=== PATIENT | male | born 1980 | race Caucasian/White ===

== ENCOUNTER 2016-06-06 12:15 | Emergency (ER) | payer OTHER ==
--- NOTE | 2016-06-06 13:03 | UC ---
Dizzy HPI HPI Summary: The patient comes in today for: 1. Lightheadedness, rash, "bumps in my hair, and bumps down my legs, and left arm," and bilateral abdominal pain: Onset: Skin problem present for 1 week. Lightheadedness since yesterday and abdominal pain since yesterday. Palliative/provocative: Nothing makes his above three symptoms better or worse. Quality: Lightheadedness (nausea, and a "blah" feeling.") "It is like I can't focus. Region: Generalized body and [employer]INT. Severity: 09/01 Time: Constant. Associated symptoms: Vomiting: x 3 yesterday. BM: Yesterday. Urination: Normal--"cloudy yellow sometimes--sometimes dark." Temperature: None taken at home. He states that the rash is present on his abdomen, and left forearm and penis. * - History Of Current Complaint Chief Complaint: UCGeneralIllness Stated Complaint: LIGHT HEADED,SKIN COMPLAINT Time Seen by Provider: 06/06/16 12:33 Hx Obtained From: Patient - Allergies/Home Medications Allergies/Adverse Reactions: Allergies Allergy/AdvReac Type Severity Reaction Status Date / Time Ibuprofen Allergy Severe Congestion Verified 06/06/16 12:40 Penicillins Allergy Severe Anaphylatic Verified 06/06/16 12:40 Shock Home Medications: Home Medications NK [No Home Medications Reported] 06/06/16 [History Confirmed 06/06/16] PMH/Surg Hx/FS Hx/Imm Hx Previously Healthy: Yes Endocrine History Of: Denies: Diabetes, Thyroid Disease, Hyperthyroidism, Hypothyroidism, Dyslipidemia Cardiovascular History Of: Denies: Cardiac Disorders, Hypertension, Pacemaker/ICD, Myocardial Infarction , Congestive Heart Failure, Atrial Fibrillation, Deep Vein Thrombosis, Bleeding Disorders Respiratory History Of: Denies: COPD, Asthma, Bronchitis, Pneumonia, Pulmonary Embolism GI/ History Of: Denies: Gastroesophageal Reflux, Ulcer, Gastrointestinal Bleed, Gall Bladder Disease, Kidney Stones, Diverticulitis, Renal Disease, Urosepsis Neurological History Of: Denies: TIA, CVA, Dementia, Seizures, Migraine Psychological History Of: Denies: Anxiety, Depression, Bipolar Disorder, Schizophrenia, Post Traumatic Stress Disorder Cancer History Of: Denies: Lung Cancer, Colorectal Cancer, Breast Cancer, Prostate Cancer, Cervical Cancer Other History Of: Negative For: HIV, Hepatitis B, Hepatitis C, Anticoagulant Therapy - Surgical History Surgical History: Yes Surgery Procedure, Year, and Place[facility] - Family History Known Family History: Negative: Cardiac Disease, Hypertension - Social History Occupation: Employed Full-time Alcohol Use: None Substance Use Type: None Smoking Status (MU): Heavy Every Day Tobacco Smoker Type: Cigarettes Amount Used/How Often: 1 PPD Length of Time of Smoking/Using Tobacco: Patient stated he doesn't remember when he started smoking. Have You Smoked in the Last Year: No Review of Systems Constitutional: Negative Skin: Rash Eyes: Negative ENT: Negative Respiratory: Negative Cardiovascular: Negative Gastrointestinal: Abdominal Pain, Vomiting Genitourinary: Negative All Other Systems Reviewed And Are Negative: Yes Physical Exam Triage Information Reviewed: Yes Appearance: Well-Appearing, No Pain Distress, Well-Nourished Vital Signs: Initial Vital Signs Temp 100 F 06/06/16 12:36 Pulse 99 06/06/16 12:36 Resp 18 06/06/16 12:36 BP 145/72 06/06/16 12:36 Pulse Ox 98 06/06/16 12:36 Vital Signs Reviewed: Yes Eyes: Positive: Conjunctiva Clear. Negative: Discharge ENT: Positive: Hearing grossly normal, Other: - Ears: Both canals blocked by cerumen. However, there is no canal erythema or edema.. Negative: Pharyngeal erythema, Nasal congestion, Nasal drainage, Tonsillar swelling, Tonsillar exudate Dental: Positive: Gross Decay/Caries @, Other: - Teeth are in poor repair. Mucous membraines pink and moist.. Negative: Dental Fracture @ Neck: Positive: Supple, Nontender, No Lymphadenopathy. Negative: Nuchal Rigidity Respiratory: Positive: Chest non-tender, Lungs clear, No respiratory distress, No accessory muscle use. Negative: Crackles, Wheezing Cardiovascular: Positive: RRR, No Murmur Abdomen Description: Positive: No Organomegaly, Soft. Negative: Nontender - He has mild tenderness to palpation right and left of the abdomen. There is no rebound, bruits or percussion tenderness., Distended, Guarding Musculoskeletal: Positive: Strength Intact, ROM Intact, No Edema Neurological: Positive: Alert, Muscle Tone Normal Psychological: Positive: Age Appropriate Behavior, Consolable Skin: Positive: rashes - He has papulo-pustular acne on his back. He had erythematous papules about 1 mm of the abdomen--numbering about 10 in number. He has a similar lesion of the left forearm but it was 2 mm in diameter. The penis has a few [place] spots which are what he is concerned about. Diagnostics - Laboratory Diagnostic Studies Completed/Ordered: Urine screen: Specific gravity: 1.015. WBC: (-). Nitrite: (-). Blood: (-). Protein: (-). Glucose: (-) Dizzy Course/Dx - Course Course Of Treatment: The patient was told of his urine being benign. The patient was told that I was not able to make an exact diagnosis for the cause of their abdominal pain. Further, the patient was told that many things can cause this type of pain--some benign and some life-threatening. Also, the patient was told that some of these life-threatening conditions may present with minimal symptoms or in. atypical ways. Based on all of this, the patient was told that my recommendation is for them to go to the ER. where there can be a more in-depth evaluation of their symptoms. However, he does not want to do that at this time and wants medication for abdominal cramps and monitor this. If he gets worse, he states that he will go to the ER. He was told that his blood pressure is elevated and to see his primary care provider. If he does not have one, he can find one from the list included in his discharge packet. - Differential Dx/Diagnosis Provider Diagnoses: Abdominal pain. high blood pressure. Discharge - Discharge Plan Condition: Stable Disposition: HOME Patient Education Materials: Acute Abdominal Pain (ED), Gastroenteritis (ED), Viral Syndrome (ED) Forms: *Work Release Referrals: Non Staff,Doctor [Primary Care Provider] - As Soon As Possible (Please be sure to follow up with your primary care provider as soon as you can for you elevated blood pressure. )
[2016-06-06 14:14] VITALS: BP 142/73
== END 2016-06-06 14:14 | disposition home or self-care (01) ==
LOC: UCCORT 12:15
DX: R10.9 Unspecified abdominal pain (principal); R11.10 Vomiting, unspecified; R03.0 Elevated blood-pressure reading, without diagnosis of hypertension; H61.23 Impacted cerumen, bilateral; K02.9 Dental caries, unspecified; L70.0 Acne vulgaris; F17.210 Nicotine dependence, cigarettes, uncomplicated; Z88.6 Allergy status to analgesic agent; Z88.0 Allergy status to penicillin; R23.8 Other skin changes
CPT/HCPCS: 81003; 99212; G0463

== ENCOUNTER 2017-11-23 19:30 | Emergency (ER) | payer SELFPAY ==
[2017-11-23 19:58] VITALS: BP 119/70
--- NOTE | 2017-11-23 20:16 | UC ---
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---has back pain from scoliosis--- does not have sick time and cannot take a day off from work without a doctors note-- - History of Current Complaint Chief Complaint: UCBackPain Stated Complaint: BACK/LEG PAIN Time Seen by Provider: 11/23/17 20:11 Hx Obtained From: Patient Onset/Duration: Worse Since - chronic issue worse past 1-2 days after working 6 days straight Timing: Constant Pain Intensity: 8 Pain Scale Used: 0-10 Numeric Back Pain: Is Discrete @ Character: Aching, Spasmodic, Stiffness Aggravating Factor(s): Movement, Lifting, Bending Alleviating Factor(s): Nothing Associated Signs And Symptoms: Positive: Negative - Allergies/Home Medications Allergies/Adverse Reactions: Allergies Allergy/AdvReac Type Severity Reaction Status Date / Time ibuprofen Allergy Congestion Verified 11/23/17 20:02 Penicillins Allergy Anaphylatic Verified 11/23/17 20:02 Shock Home Medications: Home Medications Acetaminophen [Mapap] 500 mg PO Q12HR 11/23/17 [History Confirmed 11/23/17] PMH/Surg Hx/FS Hx/Imm Hx Previously Healthy: No - scoliosis Other History Of: Negative For: HIV, Hepatitis B, Hepatitis C, Anticoagulant Therapy - Surgical History Surgical History: Yes Surgery Procedure, Year, and Place: Nasal Polyp Removal 2007[facility] - Family History Known Family History: Positive: Unknown Negative: Cardiac Disease, Hypertension - Social History Occupation: Employed Full-time Lives: With Family Alcohol Use: None Substance Use Type: None Smoking Status (MU): Heavy Every Day Tobacco Smoker Type: Cigarettes Amount Used/How Often: 1 PPD Length of Time of Smoking/Using Tobacco: Patient stated he doesn't remember when he started smoking. Have You Smoked in the Last Year: No Review of Systems Constitutional: Negative Skin: Negative Eyes: Negative ENT: Negative Respiratory: Negative Cardiovascular: Negative Gastrointestinal: Negative Genitourinary: Negative Motor: Negative Neurovascular: Negative Musculoskeletal: Arthralgia - low-mid back pain Neurological: Negative Psychological: Negative Is Patient Immunocompromised?: No All Other Systems Reviewed And Are Negative: Yes Physical Exam Triage Information Reviewed: Yes Appearance: Well-Appearing, No Pain Distress, Well-Nourished Vital Signs: Initial Vital Signs Temp 98.1 F 11/23/17 19:51 Pulse 97 11/23/17 19:51 Resp 15 11/23/17 19:51 BP 119/70 11/23/17 19:51 Pulse Ox 98 11/23/17 19:51 Vital Signs Reviewed: Yes Eye Exam: Normal Eyes: Positive: Conjunctiva Clear, Other: - perrla, eomi ENT Exam: Normal ENT: Positive: Normal ENT inspection, Hearing grossly normal. Negative: Trismus , Muffled voice, Hoarse voice Neck exam: Normal Neck: Positive: Supple, Nontender Respiratory Exam: Normal Respiratory: Positive: Chest non-tender, Lungs clear, Normal breath sounds, No respiratory distress, No accessory muscle use Cardiovascular Exam: Normal Cardiovascular: Positive: RRR, No Murmur, Pulses Normal, Brisk Capillary Refill Musculoskeletal Exam: Other Musculoskeletal: Positive: Strength Intact, ROM Limited @ - back Neurological Exam: Normal Neurological: Positive: Alert, Muscle Tone Normal, Fatigued Psychological Exam: Normal Psychological: Positive: Normal Response To Family Skin Exam: Normal Back Pain Course/Dx - Course Course Of Treatment: ice rest pain med and muscle relaxor, back exercises follow with pcp prn - Differential Dx/Diagnosis Provider Diagnoses: acute on chronic low back pain Discharge - Sign-Out/Discharge Documenting (check all that apply): Patient Departure All imaging exams completed and their final reports reviewed: No Studies - Discharge Plan Condition: Stable Disposition: HOME Prescriptions: Cyclobenzaprine TAB* [Flexeril 10 MG TAB*] 10 mg PO TID PRN #6 tab PRN Reason: pain Hydrocodone/Acetaminophen [Hydrocodone-Acetamin 5-325 mg] 1 each PO QID PRN #4 tablet MDD 4 PRN Reason: Pain Patient Education Materials: Acute Low Back Pain (ED), Lower Back Exercises (ED ) Forms: *Work Release Referrals: No Primary Care Phys,NOPCP [Primary Care Provider] - Additional Instructions: Follow with your doctor in [place] or return as needed - Billing Disposition and Condition Condition: STABLE Disposition: Home - Attestation Statements Provider Attestation: Per institutional requirements, I have reviewed the chart, however, I was not consulted specifically or made aware of this patient by the midlevel provider. I did not personally evaluate, interact with , or disposition this patient.
[2017-11-23] MEDS ORDERED: HYDROcodone/ACETAMIN 5-325 MG* 1 TAB PO ONE (20:26)
[2017-11-23] MEDS ORDERED: Cyclobenzaprine TAB* 10 MG PO ONE (20:27)
== END 2017-11-23 20:47 | disposition home or self-care (01) ==
LOC: UCCORT 19:30
DX: M54.5 Low back pain (principal); G89.29 Other chronic pain; F17.210 Nicotine dependence, cigarettes, uncomplicated; Z88.6 Allergy status to analgesic agent; Z88.0 Allergy status to penicillin
CPT/HCPCS: 99213; A9270-GY; G0463

== ENCOUNTER 2019-07-08 15:01 | Emergency (ER) | payer BC, OTHER ==
--- NOTE | 2019-07-08 15:36 | UC ---
[facility] HPI HPI Summary: ONSET OF COUGH TODAY. 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 HAD CHEST TIGHTNESS ASSOCIATED WITH COUGH. NO FEVER, N/V. NO KNOWN COVID-19 EXPOSURE. IS A SMOKER. SENT BY WORK FOR COVID-19 TESTING. [facility] PMH Previously Healthy: Yes Endocrine/Hematology History: Denies: Hx Anticoagulant Therapy, Hx Diabetes, Hx Thyroid Disease Cardiovascular History: Denies: Hx Congestive Heart Failure, Hx Deep Vein Thrombosis, Hx Hypertension , Hx Myocardial Infarction, Hx Pacemaker/ICD Respiratory History: Denies: Hx Asthma, Hx Chronic Obstructive Pulmonary Disease (COPD), Hx Lung Cancer, Hx Pneumonia, Hx Pulmonary Embolism GI History: Denies: Hx Gall Bladder Disease, Hx Gastrointestinal Bleed, Hx Ulcer, Hx Urosepsis History: Denies: Hx Kidney Stones, Hx Renal Disease Neurological History: Denies: Hx Dementia, Hx Migraine, Hx Seizures, Hx Transient Ischemic Attacks (TIA) Psychiatric History: Denies: Hx Anxiety, Hx Depression, Hx Schizophrenia, Hx Bipolar Disorder - Surgical History Surgery Procedure, Year, and Place: Nasal Polyp Removal 2007[facility] Infectious Disease History: No - Family History Known Family History: Negative: Cardiac Disease, Hypertension - Social History Alcohol Use: Rare Substance Use Type: Reports: None Hx Tobacco Use: Yes Smoking Status (MU): Heavy Every Day Tobacco Smoker Type: Cigarettes Amount Used/How Often: 1 PPD+ Length of Time of Smoking/Using Tobacco: Patient stated he doesn't remember when he started smoking. Have You Smoked in the Last Year: No [facility] All Other Systems Reviewed And Are Negative: Yes Constitutional: Negative ENT: Negative Cardiovascular: Negative Positive: Shortness Of Breath, Cough Gastrointestinal: Negative [facility] PE Appearance: Positive: Well-Appearing, Alert and Oriented, No Pain Distress, Well -Nourished Skin: Positive: Skin Color Reflects Adequate Perfusion Eyes: Positive: Conjunctiva Clear ENT: Positive: Hearing grossly normal Neck: Positive: Supple Respiratory/Lung Sounds: Positive: Normal Respiratory Effort. Negative: Cough - NONE DURING ENCOUNTER Cardiovascular: Positive: Skin Color Reflects Adequate Perfusion Neurological: Positive: Alert, Oriented to Person Place, Time Psychiatric: Positive: Normal, Affect/Mood Appropriate [facility] Course/Dx Assessment/Plan: PT WITH RESPIRATORY SX SENT BY WORK FOR COVID-19 TESTING. TESTING FOR COVID19 DONE TODAY. PATIENT TO GO HOME TO SELF-ISOLATION AND WILL BE CONTACTED WITH RESULTS. CONTACT/DROPLET PRECAUTIONS TAKEN BY NURSING DURING IN-CAR ENCOUNTER. TO DECREASE THE RISK OF TRANSMISSION OF POSSIBLE COVID-19 MY PART OF THE INTERVIEW WAS DONE USING TELEMEDICINE. Provider Diagnoses: Cough UC Telehealth Disposition Provider Recommendation for Treatment: Home/Supportive Care Telehealth Visit: Patient Consented Verbally to Telehealth Visit Telehealth Patient Statement: The patient should understand that they are communicating with their provider via a secure communication platform and that all the same privacy and confidentiality rules apply. They will also be responsible for copayments or coinsurances that apply to any Telehealth visit. Patient Identifiers: 2 Patient Identifiers Verified for Telehealth Visit Telehealth Visit Start Time: 15:23 Telehealth Visit End Time: 15:30 Telehealth Provider Attestation: The above services were appropriate to provide in a Telehealth setting.
== END 2019-07-08 15:39 | disposition home or self-care (01) ==
LOC: UCCORT 15:01
DX: R05 Cough (principal); Z20.828 Contact with and (suspected) exposure to other viral communicable diseases; F17.210 Nicotine dependence, cigarettes, uncomplicated
CPT/HCPCS: 87635; 99211; G0463; G2023